=== PATIENT | female | born 1985 | race Caucasian/White ===

== ENCOUNTER 2017-10-07 13:37 | Emergency (ER) | payer OTHER ==
[~2017-10-07] VITALS: Ht 160 cm; Wt 71.7 kg
[2017-10-07 13:41] VITALS: Ht 160 cm; Wt 71.7 kg
[2017-10-07 18:16] LABS: BASOPHIL % 0.8 % (0-2); PLATELET COUNT 231 x10^3mcL (130-400); RED CELL DISTRIBUTION WIDTH 12.4 % (11.5-14.5)
[2017-10-07 18:38] LABS: CALCIUM 9.6 mg/dL (8.5-10.1); CARBON DIOXIDE 29.8 mmol/L (21-32); CHLORIDE SERUM 102 mmol/L (98-107); CREATININE SERUM 0.7 mg/dL (0.6-1.0); GFR1 > 60 mL/min; GLUCOSE SERUM 80 mg/dL (74-106); POTASSIUM SERUM 3.8 mmol/L (3.5-5.1); SODIUM SERUM 141 mmol/L (136-145)
[2017-10-07 18:48] LABS: ALBUMIN 4.2 g/dL (3.4-5.0); ALKALINE PHOSPHATASE 84 U/L (46-116); ALT/SGPT 30 U/L (14-59); AST/SGOT 22 U/L (15-37); BILIRUBIN TOTAL 0.2 mg/dL (0.20-1.00); LIPASE 140 IU/L (73-393)
[2017-10-07 21:03] VITALS: BP 118/74
== END 2017-10-07 21:03 | disposition home or self-care (01) ==
LOC: ED 13:37
PROVIDERS: Emergency Medicine
DX: R10.13 Epigastric pain (principal); M54.9 Dorsalgia, unspecified
CPT/HCPCS: J3490; J7030; Q0092

== ENCOUNTER 2019-06-06 09:11 | Emergency (ER) | payer OTHER ==
[~2019-06-06] VITALS: Ht 157.5 cm; Wt 78.0 kg
[2019-06-06 09:40] VITALS: Ht 157.5 cm; Wt 78.0 kg
[2019-06-06 11:46] VITALS: BP 128/82
== END 2019-06-06 11:46 | disposition home or self-care (01) ==
LOC: ED 09:11
DX: S29.011A Strain of muscle and tendon of front wall of thorax, initial encounter (principal); X58.XXXA Exposure to other specified factors, initial encounter; Y93.89 Activity, other specified; Y92.89 Other specified places as the place of occurrence of the external cause; Y99.8 Other external cause status

== ENCOUNTER 2020-05-19 09:48 | Emergency (ER) | payer OTHER ==
[~2020-05-19] VITALS: Ht 157.5 cm; Wt 72.6 kg
[2020-05-19 09:49] VITALS: Ht 157.5 cm; Wt 72.6 kg
[2020-05-19 11:28] LABS: BASOPHIL % 0.1 % (0-2); PLATELET COUNT 203 x10^3mcL (130-400); RED CELL DISTRIBUTION WIDTH 12.9 % (11.5-14.5)
[2020-05-19 11:33] LABS: CALCIUM 9.5 mg/dL (8.5-10.1); CARBON DIOXIDE 24.2 mmol/L (21-32); CHLORIDE SERUM 103 mmol/L (98-107); CREATININE SERUM 0.8 mg/dL (0.6-1.0); GFR1 > 60 mL/min; GLUCOSE SERUM 84 mg/dL (74-106); POTASSIUM SERUM 3.7 mmol/L (3.5-5.1); SODIUM SERUM 137 mmol/L (136-145)
[2020-05-19 11:38] LABS: ALBUMIN 3.7 g/dL (3.4-5.0); ALKALINE PHOSPHATASE 122 U/L (46-116); ALT/SGPT 42 U/L (14-59); AST/SGOT 27 U/L (15-37); BILIRUBIN TOTAL 0.54 mg/dL (0.20-1.00)
[2020-05-19 11:43] LABS: TOTAL PROTEIN, SERUM 8.3 g/dL (6.4-8.2)
[2020-05-19 12:37] LABS: UA SPECIFIC GRAVITY 1.025 (1.005-1.035); microscopic required? YES; urine erythrocyte 1+ (NEGATIVE)
[2020-05-19 13:16] VITALS: BP 120/72
== END 2020-05-19 13:16 | disposition home or self-care (01) ==
LOC: ED 09:48
PROVIDERS: Student in an Organized Health Care Education/Training Program
DX: N12 Tubulo-interstitial nephritis, not specified as acute or chronic (principal)
CPT/HCPCS: J0696; J1885; J7030

== ENCOUNTER 2020-10-23 13:45 | Emergency (ER) | payer OTHER ==
[~2020-10-23] VITALS: Ht 157.5 cm; Wt 74.8 kg
[2020-10-23 14:11] VITALS: BP 155/99; Ht 157.5 cm; Wt 74.8 kg
[2020-10-23 14:51] LABS: BASOPHIL % 0.8 % (0.2-1.3); PLATELET COUNT 248 x10^3mcL (179-408)
[2020-10-23 15:10] LABS: CALCIUM 9.5 mg/dL (8.5-10.1); CARBON DIOXIDE 26.7 mmol/L (21-32); CHLORIDE SERUM 103 mmol/L (98-107); CREATININE SERUM 0.8 mg/dL (0.6-1.0); GFR1 > 60 mL/min; GLUCOSE SERUM 93 mg/dL (74-106); POTASSIUM SERUM 4.3 mmol/L (3.5-5.1); SODIUM SERUM 139 mmol/L (136-145)
[2020-10-23 15:15] LABS: ALBUMIN 3.7 g/dL (3.4-5.0); ALKALINE PHOSPHATASE 90 U/L (46-116); ALT/SGPT 26 U/L (14-59); AST/SGOT 21 U/L (15-37); BILIRUBIN TOTAL 0.5 mg/dL (0.20-1.00); TOTAL PROTEIN, SERUM 7.4 g/dL (6.4-8.2)
== END 2020-10-23 16:46 | disposition left against medical advice (07) ==
LOC: ED 13:45
PROVIDERS: Emergency Medicine
DX: N83.201 Unspecified ovarian cyst, right side (principal); O02.1 Missed abortion; Z88.5 Allergy status to narcotic agent; Z91.030 Bee allergy status
CPT/HCPCS: J7030